=== PATIENT | male | born 1950 | race African-American/Black ===

== ENCOUNTER 2023-05-21 00:38 | Observation (INO) | payer OTHER ==
[2023-05-21] MEDS ORDERED: fentaNYL 50 mcg/mL 1 mL Vial ONE (01:16)
[2023-05-21] MEDS ORDERED: Lidocaine 1% w/Epinephrine 1:100K 20 ML VIAL ONE (01:16)
[2023-05-21] MEDS ORDERED: Ondansetron PF 4 MG/2 ML Vial ONE (01:16)
[2023-05-21] MEDS ORDERED: Bacitracin 1 PK ONE (01:16)
[2023-05-21] MEDS ORDERED: Boostrix 0.5 ML (Tdap) VIAL (>/=7 yrs of age) ONE (01:16)
[2023-05-21 01:23] LABS: #Monocytes 0.7 thou/uL (0.11-0.59); #Neutrophils 10.7 thou/uL (1.40-6.50); %Basophils 0.3 % (0.0-1.0); %Eosinophils 0.1 % (0.0-10.0); %Monocytes 5.4 % (0.0-10.0); %Neutrophils 80.5 % (42.0-75.0); Hematocrit 41.7 % (42.0-52.0); Hemoglobin 13.3 g/dL (14.0-18.0); Mean Corpuscular HGB CONC 31.9 g/dL (32.0-36.0); Mean Corpuscular Hemoglobin 31.9 pg (27.0-31.0); Mean Platelet Volume 9.7 fL (7.4-10.4); Platelet Count 213 10x3/uL (130-400); RBC Distribution Width 15.5 % (11.5-14.5); Red Blood Cell (RBC) Count 4.17 mill/uL (4.70-6.10); White Blood Cell (WBC) Count 13.2 10x3/uL (4.8-10.8)
[2023-05-21 01:40] LABS: INR-International Normal Ratio 1.2; PTT 30.3 sec (22.9-36.1); Prothrombin Time 15.7 sec (12.0-14.7)
[2023-05-21 02:00] LABS: Acetaminophen Less than 10 mcg/mL (10.0-30.0); Alcohol Less than 10.0 mg/dL (Less than 10); Salicylate Less than 8.0 mg/dL (15.0-30.0)
[2023-05-21 02:10] LABS: ALT (SGPT) 18 U/L (8-55); AST (SGOT) 42 U/L (5-34); Albumin 3.7 g/dL (3.4-4.8); Alkaline Phosphatase 58 U/L (40-110); Anion Gap 27 mmol/L (10-20); BUN (Urea Nitrogen) 13 mg/dL (8.4-25.7); Bilirubin, Total 0.9 mg/dL (0.2-1.2); Calc. Creatinine Clearance 0 mL/min (70-130); Calcium 8.3 mg/dL (7.8-10.44); Carbon Dioxide 12 mmol/L (23-31); Chloride 107 mmol/L (98-107); Estimated GFR 58; Globulin 3.3 g/dL (2.4-3.5); Glucose 129 mg/dL (83-110); Potassium 3.7 mmol/L (3.5-5.1); Sodium 142 mmol/L (136-145)
[2023-05-21] MEDS ORDERED: Dextrose 5% in Water 1,000 ML IV PRN (03:39)
[2023-05-21] MEDS ORDERED: Dextrose 50% Abboject 50 ML SYRINGE SLOW IVP PRN (03:39)
[2023-05-21] MEDS ORDERED: hydrALAZINE 20 MG/ML VIAL SLOW IVP PRN (03:39)
[2023-05-21] MEDS ORDERED: Morphine 2 MG/ML VIAL SLOW IVP PRN (03:39)
[2023-05-21] MEDS ORDERED: Glucagon 1 MG/ML KIT IM PRN (03:39)
[2023-05-21] MEDS ORDERED: Ondansetron PF 4 MG/2 ML Vial IVP PRN (03:39)
[2023-05-21] MEDS ORDERED: Ipratropium/Albuterol 3 ML NEB NEB PRN (03:39)
[2023-05-21] MEDS ORDERED: TETANUS, DIPHTHERIA TOX,ADULT (TDVAX) 0.5 ML VIAL IM ONE (03:39)
[2023-05-21] MEDS ORDERED: CEFAZOLIN 2 GM VIAL ONE (03:56)
[2023-05-21] MEDS: Sodium Chloride 0.9% 1,000 ML IV SCH ×2 (09:45→18:45)
[2023-05-21] MEDS ORDERED: Acetaminophen 500 MG TAB ONE (10:23)
[2023-05-21] MEDS ORDERED: Famotidine/PF 20 mg/2ml Vial ONE (11:11)
[2023-05-21] MEDS: Famotidine/PF 20 mg/2ml Vial SLOW IVP SCH ×2 (11:13→21:57)
[2023-05-21] MEDS: Acetaminophen 500 MG TAB PO SCH ×3 (11:13→21:54)
[2023-05-21 13:26] VITALS: BMI 15.3
[2023-05-21] MEDS ORDERED: traMADol HCl 50 MG TAB PO PRN (14:13)
[2023-05-21] MEDS ORDERED: traMADol HCl 50 MG TAB ONE (19:08)
[2023-05-21] MEDS: traMADol HCl 50 MG TAB PO SCH (19:14)
[2023-05-22] MEDS: traMADol HCl 50 MG TAB PO SCH ×5 (00:56→23:38)
[2023-05-22] MEDS: Sodium Chloride 0.9% 1,000 ML IV SCH ×2 (00:56→03:50)
[2023-05-22] MEDS: Acetaminophen 500 MG TAB PO SCH ×4 (03:50→21:14)
[2023-05-22] MEDS: Famotidine/PF 20 mg/2ml Vial SLOW IVP SCH (10:25)
[2023-05-22] MEDS ORDERED: Cyclobenzaprine 10 MG TAB PO PRN (17:47)
[2023-05-22] MEDS ORDERED: Famotidine/PF 20 mg/2ml Vial SLOW IVP SCH (21:00)
[2023-05-22] MEDS: Melatonin 3 MG TAB PO SCH (21:14)
[2023-05-23] MEDS: Acetaminophen 500 MG TAB PO SCH ×4 (03:00→20:12)
[2023-05-23] MEDS: traMADol HCl 50 MG TAB PO SCH ×4 (05:52→23:08)
[2023-05-23] MEDS: Melatonin 3 MG TAB PO SCH (20:12)
[2023-05-24] MEDS: Acetaminophen 500 MG TAB PO SCH ×2 (02:03→09:40)
[2023-05-24] MEDS: traMADol HCl 50 MG TAB PO SCH ×2 (04:57→12:34)
[2023-05-24 08:57] VITALS: TEMP 97.9
[2023-05-24 12:32] VITALS: BP 158/83
== END 2023-05-24 14:40 | disposition home or self-care (01) ==
LOC: ERS 00:38 → ERHOLD 03:34 → SURG B 20:54
PROVIDERS: ADMIT Specialist; ATTEND Specialist
DX: S06.0X0A Concussion without loss of consciousness, initial encounter (principal); S01.81XA Laceration without foreign body of other part of head, initial encounter; W21.03XA Struck by baseball, initial encounter
CPT/HCPCS: 12001; 12011; 36416; 70450; 70486; 72125; 80053; 80307; 85025; 85610; 85730; 90471; 90715; 96365; 96375; 96376; G0378; G0390; J2405; J3010; J7050; S0028